=== PATIENT | male | born 1975 | race Caucasian/White ===

== ENCOUNTER 2025-05-02 13:47 | Emergency (ER) | payer OTHER, SELFPAY ==
[2025-05-02 13:50] VITALS: BP 158/101
[2025-05-02 14:22] LABS: Hematocrit 45.4 % (39.0-52.0); Hemoglobin 15.4 g/dL (13.0-18.0); Mean Corp Hgb Conc. 33.9 g/dL (33.0-37.0); Mean Corpuscular Volume 85.8 fL (80.0-94.0); Nucleated Red Blood Cells % 0 % (-); Platelet Count 209 10^3/uL (130-400); Red Cell Dist. Width 13.0 % (11.5-14.5)
[2025-05-02 14:44] LABS: ALT (SGPT) 28 U/L (0-50); AST (SGOT) 32 U/L (17-59); Albumin 5.0 g/dl (3.5-5.0); Alkaline Phosphatase 51 U/L (38-126); Blood Urea Nitrogen 25 mg/dl (9-20); Calcium 9.5 mg/dl (8.4-10.2); Carbon Dioxide 20 mmol/L (22-30); Chloride 105 mmol/L (98-107); Glucose 108 mg/dl (70-99); Potassium 4.0 mmol/L (3.5-5.1); Sodium 138 mmol/L (135-145); Total Protein 8.9 g/dl (6.3-8.2); eGFR > 60.00
[2025-05-02] MEDS: MORPHINE SULFATE 4 MG IV (15:29)
--- NOTE | 2025-05-02 15:30 | ED.GENMED ---
History of Present Illness
General
Chief Complaint: Abdominal Symptoms
Source: patient
Time Seen by Provider: 05/02/25 15:06
History of Present Illness
History of Present Illness:
49-year-old male with past medical history of chronic back pain, hypertension, hyperlipidemia presenting to the emergency department for evaluation of right lower groin pain that he states had a mild discomfort a week or so ago but today became
acutely worse and accompanied with some mild nausea and has not had a bowel movement in 3 days. Patient denies any history of similar. He took his usual Percocet and morphine for his chronic back pain today but nothing else. Denies any urinary
symptoms. No fevers. No other concerns at this time.
Past History
Past History
ED Past Medical History: Hypercholesterolemia and Other (Chronic back pain, migraines, anxiety, depression)
ED Past Surgical History: None
Social History
Tobacco: Non-smoker
Alcohol: None
Drug: None
Personal: Single
Living: alone
Review of Systems
Review of Systems
All Other Systems: ROS reviewed and negative except as documented in HPI and ROS
Phy Exam
Physical Exam
Physical Exam:
GENERAL: Alert , appears uncomfortable
EYE: clear conjunctiva b/l
HEAD: NCAT
ENT: o/p clr, mmm.
CARDIAC: Regular rate and rhythm .
LUNGS: Clear breath sounds bilaterally, no acute respiratory distress, no wheezes/rales/rhonchi
ABDOMEN: Soft, there is a firm small bump (~5mm in size) within the right groin/pelvis that is tender to palpation but no overlying skin changes, no r/g, no cvat
GENITOURINARY: Testicles nontender, no urethral discharge, no lesions or sores
NEUROLOGICAL: Alert and oriented
SKIN: Warm and dry, skin intact.
MUSCULOSKELETAL: No edema, well perfused.
PSYCH: Normal and appropriate interaction.
Scores
Heart Failure Risk
Heart Failure Risk Score: Not Applicable
Heart Score for Chest Pain Patients
STEMI patient?: Not applicable
Withdrawal Assessment of Alcohol
Withdrawal Assessment Completed?: Not applicable
Course
Orders/Labs/Results
Orders:
Orders
05/02/25 13:54
Abdomen/Pelvis w Contrast CT [CT Abd/pelvis W Iv Cont] Urgent
Comment:
Reason For Exam: Right lower abd quardrant pain with swelling
05/02/25 14:14
Complete Blood Count/With Diff Urgent
Comprehensive Metabolic Panel Urgent
Lactic Acid Q4H
Comment: ON ICE, CANCEL 2ND ORDER IF FIRST LACTIC ACID LEVEL <2
05/02/25 15:22
Morphine Sulfate 4 mg IV NOW STA
05/02/25 16:21
HYDROmorphone [Dilaudid] 0.5 mg IV NOW STA
05/02/25 16:28
Ondansetron Injectable [Zofran] 4 mg IV NOW STA
Abnormal Lab Results
05/02/25
14:14
Carbon Dioxide 20 L mmol/L
(22-30)
BUN 25 H mg/dl
(9-20)
Glucose 108 H mg/dl
(70-99)
Total Protein 8.9 H g/dl
(6.3-8.2)
05/02/25 14:14
05/02/25 14:14
Vital Signs
Initial and Last Documented VS:
Initial Vital Signs
Temp Pulse Resp BP Pulse Ox
98.1 F 99 18 158/101 99
05/02/25 13:50 05/02/25 13:50 05/02/25 13:50 05/02/25 13:50 05/02/25 13:50
Last Documented Vital Signs
Temp Pulse Resp BP Pulse Ox
98.1 F 85 20 142/84 99
05/02/25 13:50 05/02/25 17:00 05/02/25 17:00 05/02/25 17:00 05/02/25 17:00
MDM/Problems Addressed
Differential Diagnosis Includes:
Hernia (strangulated/incarcerated)
Colitis
Diverticulitis
Medication side effects
UTI
Renal/ureteral colic
MDM/Problems Addressed:
49-year-old male presenting to the ER for evaluation of pain within the right groin/pelvis, noticed a bulge in this area with more tenderness on palpation. Exam does confirm this history, although based off exam, location of hernia would be odd. ?
ingrown hair/abscess vs lymphnode. Labs initiated on arrival which are reassuring, normal lactic acid. CT ordered. Disposition pending
*Radiology
Radiology exam reviewed: radiology read reviewed
*Pulse Oximetry
SaO2: 99
Oxygen Mode of Delivery: Room air
Patient hypoxic: no
*Critical Care Note
Total Time (30-74mins, 75-104mins- exclusive of procedures): Not Applicable
Patient Management
Escalation/DeEscalation of care consider admission/obs:
Patient without any intra-abdominal findings on CT. I do suspect that his chronic pain may be playing a role in his current pain. Advise close follow-up with primary care provider and pain management. Stable for discharge home and aware of return
precautions.
ED Attending Note
-
Portions of this chart may have been created with voice recognition software.� Occasional wrong word or��sound alike� substitutions may have occurred due to the inherent limitations of voice recognition software.
Discharge Plan
Departure
Patient Disposition: Home (Routine Discharge)
Date of Disposition: 05/02/25
Time of Disposition: 19:07
Patient with high blood pressure during this ER visit?: Yes
Discharge Problem:
Abdominal pain
Instructions: Abdominal Pain
Prescriptions:
No Action
losartan 50 MG tablet
100 mg PO DAILY
atorvastatin 40 MG tablet
40 mg PO DAILY
sumatriptan succinate 50 MG tablet
50 mg PO PRN PRN (Reason: migraines)
hydrocodone-acetaminophen 1 TABLET tablet
1 tab PO Q4HPRN PRN (Reason: Pain)
morphine 15 MG tablet extended release
15 mg PO BID
losartan 100 MG tablet
100 mg PO DAILY
duloxetine 60 MG capsule,delayed release(DR/EC)
60 mg PO DAILY
Soma
350 mg PO HS
ondansetron 4 MG tablet,disintegrating
4 mg PO Q8H 3 Days Qty: 8 0RF
Referrals:
Dariel Espinal MD [Family Provider, Internal Medicine]
Interventions
Interventions:
*General Assessment Last Done: 05/02/25 15:37
*Neglect/Abuse Screening Last Done: 05/02/25 15:37
*ED COVID-19 Vaccine History Last Done: 05/02/25 15:37
*ED Influenza Vaccine History Last Done: 05/02/25 15:[address]
[facility] Fall Risk Assessment Tool Last Done: 05/02/25 15:38
*Risk Screen - Suicide (C-SSRS) Last Done: 05/02/25 15:37
*Nursing Disposition Last Done: 05/02/25 19:25
KK-Gzqsvb-Rlkxdebqty Assessment Last Done: 05/02/25 15:37
Discharge Date and Time
Discharge Date/Time: 05/02/25 19:25
Print Language: WOLOF
[2025-05-02] MEDS: ZOFRAN 4 MG IV (16:36)
[2025-05-02] MEDS: DILAUDID 0.5 MG IV (16:37)
[2025-05-02 17:00] VITALS: BP 142/84
== END 2025-05-02 19:25 | disposition home or self-care (01) ==
LOC: EMR 13:47
PROVIDERS: EMERGENCY PHYSICIAN Emergency Medicine; FAMILY PHYSICIAN Internal Medicine
DX: R10.31 Right lower quadrant pain (principal); E78.00 Pure hypercholesterolemia, unspecified; I10 Essential (primary) hypertension
CPT/HCPCS: 96374; 96375; 99284; 74177; 80053; 83605; 85025; Q9967